=== PATIENT | male | born 1980 | race African-American/Black ===

== ENCOUNTER 2021-11-13 13:50 | Emergency (ER) | payer SELFPAY ==
[~2021-11-13] VITALS: Ht 175.3 cm; Wt 103.0 kg
[2021-11-13] MEDS ORDERED: ONDANSETRON HCL 4MG/2ML INJ IV STA (13:58)
[2021-11-13] MEDS ORDERED: MORPHINE SULFATE 4 MG/ML CPJ (NOT FOR IM USE) IV STA (13:58)
[2021-11-13] MEDS ORDERED: SODIUM CHLORIDE 0.9% 1,000 ML IV ONE (14:00)
[2021-11-13] MEDS ORDERED: CEFAZOLIN 1000MG PREMIX 50 ML IV ONE (14:00)
[2021-11-13] MEDS ORDERED: TETANUS, DIPHTHERIA, PERTUSSIS VAC/PF 0.5ML (>10YR OLD) IM ONE (14:00)
[2021-11-13 14:26] LABS: BASOPHILS % 0.6 % (0.0-2.0); EOSINOPHILS % 1.6 % (0.0-5.0); HEMATOCRIT. 42.6 % (42.0-52.0); HEMOGLOBIN. 14.8 g/dL (14.0-18.0); LYMPHOCYTES % 18.1 % (20.0-50.0); MEAN CORPUSCULAR HEMOGLOBIN 33.5 pg (28.0-32.0); MEAN CORPUSCULAR VOLUME 96.3 fL (80.0-94.0); MEAN PLATELET VOLUME 8.3 fl (7.4-10.4); MONOCYTES % 11.6 % (2.0-8.0); NEUTROPHILS % 68.1 % (40.0-76.0); PLATELET 343 x1000/uL (130-400); RED BLOOD CELL COUNT 4.43 mill/uL (4.7-6.1); RED CELL DISTRIBUTION WIDTH 12.6 % (11.6-14.6)
[2021-11-13 14:29] LABS: CHLORIDE 107 mEq/L (98-107)
[2021-11-13 14:43] LABS: PROTHROMBIN TIME 10.4 sec (9.6-11.0)
[2021-11-13] MEDS ORDERED: CEPH500T MT (14:58)
[2021-11-13 17:45] VITALS: BP 129/76
== END 2021-11-13 17:51 | disposition home or self-care (01) ==
LOC: ER 13:50
DX: S81.831A Puncture wound without foreign body, right lower leg, initial encounter (principal); W34.09XA Accidental discharge from other specified firearms, initial encounter; Y93.89 Activity, other specified; Y92.89 Other specified places as the place of occurrence of the external cause; Y99.8 Other external cause status
CPT/HCPCS: 36415; 73552; 73562; 80053; 85025; 85610; 90471; 90715; 96365; 96375; 99284; J0690; J2270; J2405; J7030; Z7610